=== PATIENT | male | born 1955 | race African-American/Black ===

== ENCOUNTER 2024-05-09 07:47 | Inpatient (IN) | payer MEDICARE, MEDICAID ==
[~2024-05-09] VITALS: Ht 177.8 cm; Wt 85.3 kg
[~2024-05-09 07:47] MED LIST: ACET-2708 MT; ASPI-1406 PO; CARV6.2548 MT; FURO80TA3 MT; HYDR100T11 MT; HYDR50TA40 MT; LORA10TA7 MT; LOSA100T33 PO; MULT-1204 MT; OMEG-79 MT; TAMS-11 PO
[2024-05-09 08:34] LABS: HEMATOCRIT. 22.9 % (42.0-52.0); HEMOGLOBIN. 7.2 g/dL (14.0-18.0); MEAN CORPUSCULAR HEMOGLOBIN 22.5 pg (28.0-32.0); MEAN CORPUSCULAR HGB CONC 31.6 g/dL (31.0-37.0); MEAN PLATELET VOLUME 8.1 fl (7.4-10.4); PLATELET 185 x1000/uL (130-400); RED BLOOD CELL COUNT 3.22 mill/uL (4.7-6.1)
[2024-05-09 08:37] LABS: DIFFERENTIAL COMMENT 1
[2024-05-09] MEDS: METHYLPREDNISOLONE SOD SUCC 125MG/2ML (ACT-O-VIAL) IV ONE (08:48)
[2024-05-09 08:50] LABS: CHLORIDE 104 mEq/L (98-107); POTASSIUM 5.9 mEq/L (3.5-5.1); SODIUM 138 mEq/L (136-145)
[2024-05-09 08:51] LABS: CALCIUM 7.6 mg/dL (8.7-10.4); CARBON DIOXIDE 23 mEq/L (21-32)
[2024-05-09 08:56] LABS: GLUCOSE 123 mg/dL (70-105); UREA NITROGEN BLOOD 93 mg/dL (9-23)
[2024-05-09 09:17] LABS: CREATININE 5.9 mg/dL (0.6-1.3); TROPONIN I HIGH SENSITIVITY 104 ng/L (3.0-53)
[2024-05-09] MEDS: CEFTRIAXONE 1GM/50ML 50 ML IV ONE (09:46)
[2024-05-09] MEDS: HYDRALAZINE 20MG/ML VIAL IV ONE (09:46)
[2024-05-09] MEDS ORDERED: ONDANSETRON HCL 4MG/2ML INJ IV PRN (10:30)
[2024-05-09] MEDS ORDERED: ACETAMINOPHEN 325MG TABLET PO PRN ×2 (10:30)
[2024-05-09] MEDS ORDERED: GUAIFENESIN 200MG/10ML SUGAR FREE UDC PO PRN (10:30)
[2024-05-09] MEDS ORDERED: IPRATROPIUM/ALBUTEROL 0.5-3(2.5)MG/3ML NEB HHN PRN (10:30)
[2024-05-09] MEDS: AZITHROMYCIN 500MG/250ML 250 ML IV SCH (10:50)
[2024-05-09 11:28] LABS: IRON 49 ug/dL (65-175)
[2024-05-09 11:30] LABS: PHOSPHORUS 4.8 mg/dL (2.5-4.9)
[2024-05-09 11:31] LABS: TOTAL IRON BINDING CAPACITY 567 ug/dl (250-425)
[2024-05-09 11:45] LABS: PLATELET ESTIMATE NORMAL; TARGET CELLS 1+
[2024-05-09 11:46] LABS: ANISOCYTOSIS 3+; HYPOCHROMASIA 2+
[2024-05-09 11:48] LABS: MICROCYTOSIS 1+
[2024-05-09] MEDS: SODIUM POLYSTYRENE SULFONATE 15 G/60 ML BOT PO NR (11:51)
[2024-05-09] MEDS: CLONIDINE 0.1MG TABLET PO PRN (11:51)
[2024-05-09] MEDS: PANTOPRAZOLE SODIUM 40 MG/VIAL IV SCH (11:51)
[2024-05-09] MEDS: INSULIN REGULAR (HUMULIN R) 1000UNITS/10ML VIAL IV NR (12:39)
[2024-05-09] MEDS: DEXTROSE 50% WATER 50ML SYRINGE IV NR (12:39)
[2024-05-09] MEDS: SODIUM BICARBONATE 8.4% 50MEQ/50ML SYR IV NR (12:39)
[2024-05-09] MEDS: HYDRALAZINE HCL 100MG TABLET PO SCH (13:09)
[2024-05-09 16:57] LABS: POTASSIUM 5.1 mEq/L (3.5-5.1)
[2024-05-09 17:10] VITALS: BP 173/87; PULSE 91; RESP 19; TEMP 37.05852; O2SAT 98
[2024-05-09 17:15] VITALS: BP 173/87; PULSE 91
[2024-05-09 18:15] VITALS: BP 205/104; PULSE 87
[2024-05-09 19:15] VITALS: BP 180/108; PULSE 82
[2024-05-09 20:15] VITALS: BP 214/117; PULSE 91
[2024-05-09 20:16] VITALS: BP 214/117; PULSE 91; RESP 16; TEMP 37.05852; O2SAT 98
[2024-05-09 20:46] LABS: CLARITY URINE CLEAR (CLEAR); COLOR URINE YELLOW (YELLOW); GLUCOSE URINE NEGATIVE (NEGATIVE); KETONES URINE NEGATIVE (NEGATIVE); LEUKOCYTE ESTERASE URINE NEGATIVE (NEGATIVE); NITRITE URINE NEGATIVE (NEGATIVE); OCCULT BLOOD URINE NEGATIVE (NEGATIVE); PH URINE 6.5 (4.5-8.0); PROTEIN URINE 3+ (NEGATIVE); SPECIFIC GRAVITY URINE 1.014 (1.005-1.030)
[2024-05-09] MEDS: FUROSEMIDE 40MG/4ML VIAL IV SCH (20:58)
[2024-05-09] MEDS: HYDRALAZINE HCL 25MG TABLET PO SCH (20:59)
[2024-05-09 21:00] LABS: *AMPHETAMINES SCREEN URINE NEGATIVE (NEGATIVE); *BARBITURATES SCREEN URINE NEGATIVE (NEGATIVE); *BENZODIAZEPINES SCREEN URINE NEGATIVE (NEGATIVE); *COCAINE SCREEN URINE NEGATIVE (NEGATIVE); METHADONE URINE SCREEN NEGATIVE (NEGATIVE); OPIATES URINE SCREEN NEGATIVE (NEGATIVE)
[2024-05-09 21:01] LABS: CANNABINOID URINE SCREEN NEGATIVE (NEGATIVE); ECSTASY MDMA SCREEN URINE NEGATIVE (NEGATIVE); PHENCYCLIDINE URINE SCREEN NEGATIVE (NEGATIVE)
[2024-05-09 21:06] LABS: WBC URINE NONE SEEN /hpf (0-2)
[2024-05-09 21:07] LABS: BACTERIA URINE NONE SEEN; RBC URINE NONE SEEN /hpf (0-2); SQUAMOUS EPITHELIAL CELL URINE NONE SEEN /lpf (RARE/1+)
[2024-05-09] MEDS: ISOSORBIDE MONONITRATE 60MG TABLET SR 24HR PO SCH (21:15)
[2024-05-09 21:27] LABS: TROPONIN I HIGH SENSITIVITY 192 ng/L (3.0-53)
[2024-05-09] MEDS: CARVEDILOL 6.25 MG TABLET PO SCH (21:36)
[2024-05-09] MEDS: ATORVASTATIN CALCIUM 40MG TABLET PO SCH (21:36)
[2024-05-09 22:35] LABS: TROPONIN I HIGH SENSITIVITY 169 ng/L (3.0-53)
[2024-05-09] MEDS: NICARDIPINE 40MG/200ML PREMIX 200 ML IV PRN (23:57)
[2024-05-10 01:27] LABS: TROPONIN I HIGH SENSITIVITY 178 ng/L (3.0-53)
[2024-05-10] MEDS: NICARDIPINE 40MG/200ML PREMIX 200 ML IV PRN (08:48)
[2024-05-10 08:52] LABS: BASOPHILS % 0.2 % (0.0-2.0); DIFFERENTIAL COMMENT 0; LYMPHOCYTES % 7.8 % (20.0-50.0); MEAN CORPUSCULAR HEMOGLOBIN 22.1 pg (28.0-32.0); MEAN CORPUSCULAR HGB CONC 31.5 g/dL (31.0-37.0); MEAN CORPUSCULAR VOLUME 70.2 fL (80.0-94.0); MEAN PLATELET VOLUME 8.2 fl (7.4-10.4); MONOCYTES % 11.1 % (2.0-8.0); NEUTROPHILS % 80.9 % (40.0-76.0); PLATELET 143 x1000/uL (130-400); RED BLOOD CELL COUNT 2.66 mill/uL (4.7-6.1); WHITE BLOOD COUNT 8.3 x1000/uL (4.5-11.0)
[2024-05-10] MEDS ORDERED: LOSARTAN 100 MG TABLET PO SCH (09:00)
[2024-05-10 09:07] LABS: HEMATOCRIT. 18.7 % (42.0-52.0); HEMOGLOBIN. 5.9 g/dL (14.0-18.0)
[2024-05-10 09:10] LABS: CALCIUM 7.3 mg/dL (8.7-10.4); CARBON DIOXIDE 28 mEq/L (21-32); CHLORIDE 102 mEq/L (98-107); POTASSIUM 4.7 mEq/L (3.5-5.1); SODIUM 140 mEq/L (136-145)
[2024-05-10 09:15] LABS: GLUCOSE 128 mg/dL (70-105); TRIGLYCERIDE 43 mg/dL (0-150)
[2024-05-10 09:16] LABS: ALANINE AMINOTRANSFERASE 78 IU/L (10-49); ASPARTATE AMINOTRANSFERASE 52 IU/L (<34); LDL CHOLESTEROL 57 mg/dL (5-100); UREA NITROGEN BLOOD 74 mg/dL (9-23)
[2024-05-10 09:17] LABS: BILIRUBIN DIRECT 0.2 mg/dL (<=3.0); CHOLESTEROL 108 mg/dL (<200)
[2024-05-10 09:18] LABS: BILIRUBIN TOTAL 0.4 mg/dL (0.1-1.0); HDL CHOLESTEROL 38 mg/dL (>55); PROTEIN TOTAL 5.5 g/dL (6.0-8.3)
[2024-05-10 09:20] LABS: T4 FREE 1.31 ng/dL (0.89-1.76)
[2024-05-10 09:21] LABS: THYROID STIMULATING HORMONE 1.56 uIU/mL (0.55-4.78)
[2024-05-10] MEDS: TAMSULOSIN HCL 0.4MG SR CAPSULE PO SCH (09:36)
[2024-05-10] MEDS: ASPIRIN 81MG EC TABLET PO SCH (09:36)
[2024-05-10 09:50] LABS: TROPONIN I HIGH SENSITIVITY 185 ng/L (3.0-53)
[2024-05-10 11:12] LABS: HEMATOCRIT 19.2 % (42.0-52.0); HEMOGLOBIN 5.9 g/dL (14.0-18.0)
[2024-05-10 13:50] LABS: TROPONIN I HIGH SENSITIVITY 204 ng/L (3.0-53)
[2024-05-10 14:30] VITALS: BP 147/83; PULSE 83; RESP 20; TEMP 37
[2024-05-10 16:00] VITALS: BP 137/85; PULSE 82; RESP 18; TEMP 36.8; O2SAT 98
[2024-05-10 20:05] VITALS: BP 164/90; PULSE 74; RESP 18; TEMP 36.5; O2SAT 100
[2024-05-10 21:18] LABS: TROPONIN I HIGH SENSITIVITY 215 ng/L (3.0-53)
[2024-05-11] VITALS (11 sets, daily range): BP systolic 152–221; BP diastolic 79–115; PULSE 75–99; RESP 18–20; TEMP 36.2–37.2; O2SAT 95–100
[2024-05-11 02:13] LABS: HEMOGLOBIN 7.1 g/dL (14.0-18.0)
[2024-05-11 06:51] LABS: HEMATOCRIT 25.1 % (42.0-52.0); HEMOGLOBIN 7.9 g/dL (14.0-18.0); MEAN CORPUSCULAR HEMOGLOBIN 22.9 pg (28.0-32.0); MEAN CORPUSCULAR HGB CONC 31.6 g/dL (31.0-37.0); MEAN CORPUSCULAR VOLUME 72.3 fL (80.0-94.0); PLATELET 141 x1000/uL (130-400); RED BLOOD CELL COUNT 3.47 mill/uL (4.7-6.1); RED CELL DISTRIBUTION WIDTH 17.7 % (11.6-14.6); WHITE BLOOD COUNT 10.5 x1000/uL (4.5-11.0)
[2024-05-11] MEDS: HYDRALAZINE 20MG/ML VIAL IV NR (06:54)
[2024-05-11 07:01] LABS: POTASSIUM 4.2 mEq/L (3.5-5.1)
[2024-05-11 07:02] LABS: CALCIUM 7.9 mg/dL (8.7-10.4)
[2024-05-11 07:15] LABS: CREATININE 5.3 mg/dL (0.6-1.3)
[2024-05-11] MEDS: CLONIDINE 0.1MG TABLET PO SCH (12:34)
[2024-05-11] MEDS: HYDRALAZINE HCL 100MG TABLET PO SCH (12:35)
[2024-05-11] MEDS: AMLODIPINE 10MG TABLET PO SCH (12:35)
[2024-05-11] MEDS: ENOXAPARIN 30MG/0.3ML SYR SUBCUT SCH (18:15)
[2024-05-11] MEDS: CARVEDILOL 12.5MG TABLET PO SCH (20:53)
[2024-05-11] MEDS ORDERED: CARVEDILOL 12.5MG TABLET PO SCH (21:00)
[2024-05-11] MEDS: MELATONIN 3MG TABLET PO NR (23:57)
[2024-05-12] VITALS (7 sets, daily range): BP systolic 145–174; BP diastolic 59–87; PULSE 68–77; RESP 18–20; TEMP 36.6–37.3; O2SAT 95–100
[2024-05-12 11:10] LABS: CALCIUM 7.3 mg/dL (8.7-10.4); POTASSIUM 3.5 mEq/L (3.5-5.1)
[2024-05-12 11:15] LABS: CREATININE 4.1 mg/dL (0.6-1.3)
[2024-05-12 11:20] LABS: BASOPHILS % 0.4 % (0.0-2.0); DIFFERENTIAL COMMENT 0; EOSINOPHILS % 1.5 % (0.0-5.0); HEMATOCRIT. 22.6 % (42.0-52.0); HEMOGLOBIN. 7.3 g/dL (14.0-18.0); LYMPHOCYTES % 9.9 % (20.0-50.0); MEAN CORPUSCULAR HEMOGLOBIN 23.5 pg (28.0-32.0); MEAN CORPUSCULAR HGB CONC 32.1 g/dL (31.0-37.0); MEAN CORPUSCULAR VOLUME 73.1 fL (80.0-94.0); MONOCYTES % 8.5 % (2.0-8.0); NEUTROPHILS % 79.7 % (40.0-76.0); PLATELET 125 x1000/uL (130-400); RED BLOOD CELL COUNT 3.09 mill/uL (4.7-6.1); RED CELL DISTRIBUTION WIDTH 17.5 % (11.6-14.6); WHITE BLOOD COUNT 6.9 x1000/uL (4.5-11.0)
[2024-05-12] MEDS: CLONIDINE 0.2MG TABLET PO SCH (21:05)
[2024-05-13] VITALS (12 sets, daily range): BP systolic 137–190; BP diastolic 64–100; PULSE 65–99; RESP 18–20; TEMP 36.1–36.9; O2SAT 97–100
[2024-05-13 07:51] LABS: CHLORIDE 103 mEq/L (98-107); POTASSIUM 3.8 mEq/L (3.5-5.1); SODIUM 141 mEq/L (136-145)
[2024-05-13 07:52] LABS: CARBON DIOXIDE 28 mEq/L (21-32); POTASSIUM 3.6 mEq/L (3.5-5.1)
[2024-05-13 07:53] LABS: CALCIUM 7.2 mg/dL (8.7-10.4)
[2024-05-13 07:58] LABS: CREATININE 4.5 mg/dL (0.6-1.3)
[2024-05-13 08:01] LABS: BASOPHILS % 0.5 % (0.0-2.0); DIFFERENTIAL COMMENT 0; EOSINOPHILS % 2.7 % (0.0-5.0); HEMATOCRIT. 21.7 % (42.0-52.0); LYMPHOCYTES % 11.5 % (20.0-50.0); MEAN CORPUSCULAR HEMOGLOBIN 22.7 pg (28.0-32.0); MEAN CORPUSCULAR HGB CONC 31.5 g/dL (31.0-37.0); MEAN CORPUSCULAR VOLUME 71.8 fL (80.0-94.0); MEAN PLATELET VOLUME 8.4 fl (7.4-10.4); MONOCYTES % 8.8 % (2.0-8.0); NEUTROPHILS % 76.5 % (40.0-76.0); PLATELET 121 x1000/uL (130-400); RED BLOOD CELL COUNT 3.02 mill/uL (4.7-6.1); RED CELL DISTRIBUTION WIDTH 17.2 % (11.6-14.6); WHITE BLOOD COUNT 5.7 x1000/uL (4.5-11.0)
[2024-05-13 09:12] LABS: HEMOGLOBIN. 6.9 g/dL (14.0-18.0)
[2024-05-13] MEDS: FOLIC ACID/VITAMIN B COMP W-C TABLET PO SCH (11:06)
[2024-05-13 13:30] LABS: HEMATOCRIT 23.5 % (42.0-52.0); HEMOGLOBIN 7.4 g/dL (14.0-18.0)
[2024-05-13] MEDS: CLONIDINE 0.3MG TABLET PO SCH (21:14)
[2024-05-13] MEDS: EPOETIN ALFA-EPBX 4,000 UNIT/ML VIAL SUBCUT SCH (21:14)
[2024-05-13 21:40] LABS: HEMATOCRIT 22.1 % (42.0-52.0); HEMOGLOBIN 7.1 g/dL (14.0-18.0)
[2024-05-14] VITALS: BP 127/63; PULSE 69; RESP 20; TEMP 36.2; O2SAT 98
[2024-05-14 00:58] LABS: HEMATOCRIT 21.8 % (42.0-52.0); HEMOGLOBIN 7.1 g/dL (14.0-18.0)
[2024-05-14 04:00] VITALS: BP 149/80; PULSE 67; RESP 19; TEMP 36.2; O2SAT 96
[2024-05-14] MEDS: DOCUSATE SODIUM 100MG CAPSULE PO PRN (05:41)
[2024-05-14 08:00] VITALS: BP 143/89; PULSE 68; RESP 18; TEMP 36.3; O2SAT 97
[2024-05-14 08:25] LABS: BASOPHILS % 0.9 % (0.0-2.0); DIFFERENTIAL COMMENT 0; EOSINOPHILS % 3.1 % (0.0-5.0); HEMOGLOBIN. 7.4 g/dL (14.0-18.0); LYMPHOCYTES % 12.7 % (20.0-50.0); MEAN CORPUSCULAR HEMOGLOBIN 23.4 pg (28.0-32.0); MEAN CORPUSCULAR HGB CONC 32.1 g/dL (31.0-37.0); MEAN PLATELET VOLUME 9.2 fl (7.4-10.4); MONOCYTES % 9.4 % (2.0-8.0); NEUTROPHILS % 73.9 % (40.0-76.0); PLATELET 136 x1000/uL (130-400); RED BLOOD CELL COUNT 3.16 mill/uL (4.7-6.1); RED CELL DISTRIBUTION WIDTH 17.4 % (11.6-14.6); WHITE BLOOD COUNT 5.5 x1000/uL (4.5-11.0)
[2024-05-14 08:38] LABS: POTASSIUM 3.8 mEq/L (3.5-5.1)
[2024-05-14 08:39] LABS: CALCIUM 7.4 mg/dL (8.7-10.4)
[2024-05-14 08:44] LABS: CREATININE 3.8 mg/dL (0.6-1.3)
[2024-05-14 12:00] VITALS: BP 119/60; PULSE 67; RESP 18; TEMP 36.4; O2SAT 100
[2024-05-14] MEDS: FERROUS SULFATE 325MG TABLET PO SCH (13:18)
[2024-05-14 15:29] LABS: HEPATITIS B SURFACE ANTIGEN NEGATIVE (Negative)
[2024-05-14 15:50] LABS: HEPATITIS A AB IGM NEGATIVE (Negative); HEPATITIS B CORE AB IGM NEGATIVE (Negative)
[2024-05-14 15:51] LABS: HEPATITIS C AB REACTIVE (Pos) (Negative)
[2024-05-14 16:00] VITALS: BP 118/56; PULSE 64; RESP 18; TEMP 36.6; O2SAT 97
[2024-05-14 20:00] VITALS: BP 129/59; PULSE 68; RESP 18; TEMP 36.6; O2SAT 100
[2024-05-15] VITALS (16 sets, daily range): BP systolic 134–180; BP diastolic 65–99; PULSE 62–72; RESP 18–27; TEMP 36.1–37.2; O2SAT 92–100
[2024-05-15 06:17] LABS: PROTHROMBIN TIME 10.9 sec (9.6-11.0)
[2024-05-15 06:19] LABS: POTASSIUM 3.7 mEq/L (3.5-5.1)
[2024-05-15 06:20] LABS: CALCIUM 7.3 mg/dL (8.7-10.4)
[2024-05-15 06:25] LABS: CREATININE 4.3 mg/dL (0.6-1.3)
[2024-05-15 07:12] LABS: BASOPHILS % 0.7 % (0.0-2.0); DIFFERENTIAL COMMENT 0; EOSINOPHILS % 3.2 % (0.0-5.0); HEMATOCRIT 22.7 % (42.0-52.0); HEMATOCRIT. 22.7 % (42.0-52.0); HEMOGLOBIN 7.3 g/dL (14.0-18.0); HEMOGLOBIN. 7.3 g/dL (14.0-18.0); LYMPHOCYTES % 12.1 % (20.0-50.0); MEAN CORPUSCULAR HEMOGLOBIN 23.5 pg (28.0-32.0); MEAN CORPUSCULAR HGB CONC 32.3 g/dL (31.0-37.0); MEAN CORPUSCULAR VOLUME 72.8 fL (80.0-94.0); MEAN PLATELET VOLUME 8.5 fl (7.4-10.4); MONOCYTES % 11.5 % (2.0-8.0); NEUTROPHILS % 72.5 % (40.0-76.0); PLATELET 149 x1000/uL (130-400); RED BLOOD CELL COUNT 3.12 mill/uL (4.7-6.1); RED CELL DISTRIBUTION WIDTH 17.2 % (11.6-14.6); WHITE BLOOD COUNT 5.2 x1000/uL (4.5-11.0)
[2024-05-15] MEDS ORDERED: LIDOCAINE HCL 1% 10 MG/ML 10ML VIAL ONE ×2 (07:40→12:14)
[2024-05-15] MEDS: CEFAZOLIN 1000MG PREMIX 50 ML IV NR (08:15)
[2024-05-15] MEDS ORDERED: FENTANYL CITRATE/PF 50MCG/ML 2ML VIAL ONE (08:16)
[2024-05-16] VITALS (15 sets, daily range): BP systolic 124–155; BP diastolic 61–80; PULSE 62–78; RESP 16–20; TEMP 36.22512–36.8; O2SAT 95–100
[2024-05-16 06:26] LABS: HEMATOCRIT 23.2 % (42.0-52.0); HEMOGLOBIN 7.3 g/dL (14.0-18.0); MEAN CORPUSCULAR HEMOGLOBIN 22.7 pg (28.0-32.0); MEAN CORPUSCULAR HGB CONC 31.7 g/dL (31.0-37.0); MEAN CORPUSCULAR VOLUME 71.6 fL (80.0-94.0); PLATELET 160 x1000/uL (130-400); RED BLOOD CELL COUNT 3.24 mill/uL (4.7-6.1); RED CELL DISTRIBUTION WIDTH 16.9 % (11.6-14.6)
[2024-05-16 07:02] LABS: POTASSIUM 3.4 mEq/L (3.5-5.1)
[2024-05-16 07:03] LABS: CALCIUM 7.2 mg/dL (8.7-10.4)
[2024-05-16 07:06] LABS: CREATININE 4.6 mg/dL (0.6-1.3)
[2024-05-16] MEDS: POTASSIUM CHLORIDE 20MEQ TABLET SR PO NR (09:18)
[2024-05-17] VITALS: BP 127/65; PULSE 60; RESP 20; TEMP 36.5; O2SAT 97
[2024-05-17 04:00] VITALS: BP 146/78; PULSE 59; RESP 20; TEMP 36.4; O2SAT 97
[2024-05-17 07:40] LABS: POTASSIUM 3.8 mEq/L (3.5-5.1)
[2024-05-17 07:42] LABS: CALCIUM 7.5 mg/dL (8.7-10.4)
[2024-05-17 07:43] LABS: BASOPHILS % 0.7 % (0.0-2.0); DIFFERENTIAL COMMENT 0; EOSINOPHILS % 3.3 % (0.0-5.0); HEMATOCRIT 23.3 % (42.0-52.0); HEMATOCRIT. 23.3 % (42.0-52.0); HEMOGLOBIN 7.5 g/dL (14.0-18.0); HEMOGLOBIN. 7.5 g/dL (14.0-18.0); LYMPHOCYTES % 14.7 % (20.0-50.0); MEAN CORPUSCULAR HEMOGLOBIN 23.1 pg (28.0-32.0); MEAN CORPUSCULAR HGB CONC 32.1 g/dL (31.0-37.0); MEAN CORPUSCULAR VOLUME 71.9 fL (80.0-94.0); MEAN PLATELET VOLUME 8.9 fl (7.4-10.4); MONOCYTES % 14.4 % (2.0-8.0); NEUTROPHILS % 66.9 % (40.0-76.0); PLATELET 173 x1000/uL (130-400); RED BLOOD CELL COUNT 3.24 mill/uL (4.7-6.1); RED CELL DISTRIBUTION WIDTH 16.9 % (11.6-14.6); WHITE BLOOD COUNT 4.6 x1000/uL (4.5-11.0)
[2024-05-17 07:46] LABS: CREATININE 3.9 mg/dL (0.6-1.3)
[2024-05-17 08:00] VITALS: BP 132/68; PULSE 60; RESP 18; TEMP 36.3; O2SAT 96
[2024-05-17 12:00] VITALS: BP 127/74; PULSE 68; RESP 18; TEMP 36.7; O2SAT 97
[2024-05-17 15:17] VITALS: BP 122/74; PULSE 68; TEMP 97.8; O2SAT 95
[2024-05-17 16:00] VITALS: BP 127/86; PULSE 60; RESP 18; TEMP 36.1; O2SAT 96
== END 2024-05-17 17:25 | disposition home or self-care (01) | DRG 280 ==
LOC: ER 07:47 → MICUSO 09:30 → EDBEDREQSVC 05-10 01:05 → 7WST 05-10 15:13
PROVIDERS: ADMIT Hospitalist; ATTEND Hospitalist
PROC: 5A1D70Z Performance of Urinary Filtration, Intermittent, Less than 6 Hours Per Day (ICD-10-PCS; principal; 2024-05-09)
PROC: 02HV33Z Insertion of Infusion Device into Superior Vena Cava, Percutaneous Approach (ICD-10-PCS; 2024-05-09)
PROC: B548ZZA Ultrasonography of Superior Vena Cava, Guidance (ICD-10-PCS; 2024-05-09)
PROC: 30233N1 Transfusion of Nonautologous Red Blood Cells into Peripheral Vein, Percutaneous Approach (ICD-10-PCS; 2024-05-10)
PROC: 5A1D70Z Performance of Urinary Filtration, Intermittent, Less than 6 Hours Per Day (ICD-10-PCS; 2024-05-11)
PROC: 5A1D70Z Performance of Urinary Filtration, Intermittent, Less than 6 Hours Per Day (ICD-10-PCS; 2024-05-13)
PROC: 0JH63XZ Insertion of Tunneled Vascular Access Device into Chest Subcutaneous Tissue and Fascia, Percutaneous Approach (ICD-10-PCS; 2024-05-15)
PROC: 02HV33Z Insertion of Infusion Device into Superior Vena Cava, Percutaneous Approach (ICD-10-PCS; 2024-05-15)
PROC: B5181ZA Fluoroscopy of Superior Vena Cava using Low Osmolar Contrast, Guidance (ICD-10-PCS; 2024-05-15)
PROC: 5A1D70Z Performance of Urinary Filtration, Intermittent, Less than 6 Hours Per Day (ICD-10-PCS; 2024-05-16)
DX: I13.2 Hypertensive heart and chronic kidney disease with heart failure and with stage 5 chronic kidney disease, or end stage renal disease (principal); I50.33 Acute on chronic diastolic (congestive) heart failure; I21.A1 Myocardial infarction type 2; J18.9 Pneumonia, unspecified organism; N18.6 End stage renal disease; I16.1 Hypertensive emergency; J44.0 Chronic obstructive pulmonary disease with (acute) lower respiratory infection; Z91.158 Patient's noncompliance with renal dialysis for other reason; E87.5 Hyperkalemia; Z91.148 Patient's other noncompliance with medication regimen for other reason; E83.51 Hypocalcemia; E78.00 Pure hypercholesterolemia, unspecified; F19.90 Other psychoactive substance use, unspecified, uncomplicated; I44.0 Atrioventricular block, first degree; M10.9 Gout, unspecified; B19.20 Unspecified viral hepatitis C without hepatic coma; Z99.2 Dependence on renal dialysis; I1A.0 Resistant hypertension; D64.9 Anemia, unspecified; I25.10 Atherosclerotic heart disease of native coronary artery without angina pectoris; I25.2 Old myocardial infarction; Z79.82 Long term (current) use of aspirin; Z79.899 Other long term (current) drug therapy; Z87.891 Personal history of nicotine dependence; Z90.49 Acquired absence of other specified parts of digestive tract; Z95.5 Presence of coronary angioplasty implant and graft
CPT/HCPCS: 36415; 36430; 36556; 71045; 76937; 77001; 80048; 80051; 80061; 80076; 80305; 81003; 82728; 83036; 83540; 83550; 83605; 83735; 83880; 84100; 84132; 84145; 84439; 84443; 84484; 85014; 85018; 85025; 85027; 86705; 86706; 86709; 86850; 86900; 86920; 87340; 90935; 93005; 93970; 97166; 99291; C1725; C1750; C1752; C1769; J0360; J0456; J0690; J0696; J0885; J1642; J1650; J1815; J1940; J2003; J2405; J2470; J2919; J3010; J3490; P9016